=== PATIENT | female | born 1935 | race Caucasian/White ===

== ENCOUNTER 2019-01-15 07:30 | Inpatient (IN) | payer OTHER ==
[~2019-01-15] VITALS: Ht 162.6 cm; Wt 70.8 kg
[2019-01-15] MEDS ORDERED: [UNRECOGNIZED DRUG - OTHER] PO (09:57)
[2019-01-15] MEDS ORDERED: AMILODIPINE PO (09:57)
[2019-01-15] MEDS ORDERED: ATENOLO PO (09:58)
[2019-01-15] MEDS ORDERED: GABAPENTIN600 MG PO (09:58)
[2019-01-15] MEDS ORDERED: FOLGARD TABLET1 EACH PO (09:59)
[2019-01-27] MEDS ORDERED: DIOVAN160 M1 PO (15:42)
[2019-01-27] MEDS ORDERED: NORVASC5 MG PO (15:42)
[2019-01-27] MEDS ORDERED: TENORMIN25 MG PO (15:43)
[2019-01-30] MEDS ORDERED: ELIQUIS2.5 MG PO (08:16)
[2019-01-30] MEDS ORDERED: PERCOCET 5-3251 EACH PO (08:16)
[2019-01-30] MEDS ORDERED: DUI500 PO (08:16)
== END 2019-01-30 16:32 | DRG 470 ==
LOC: O/R 01-27 05:45 → SURH 01-27 05:45
PROVIDERS: ADMIT Orthopaedic Surgery
PROC: 0SRC0J9 Replacement of Right Knee Joint with Synthetic Substitute, Cemented, Open Approach (ICD-10-PCS; principal; 2019-01-28)
PROC: 0MNN0ZZ Release Right Knee Bursa and Ligament, Open Approach (ICD-10-PCS; 2019-01-28)
DX: M17.11 Unilateral primary osteoarthritis, right knee (principal); D62 Acute posthemorrhagic anemia; M81.0 Age-related osteoporosis without current pathological fracture; I10 Essential (primary) hypertension; E66.8 Other obesity; Z85.3 Personal history of malignant neoplasm of breast

== ENCOUNTER 2020-11-29 07:33 | Outpatient (CLI) | payer OTHER ==
[~2020-11-29 07:33] MED LIST: AMILODIPINE PO; ATENOLO PO; DIOVAN160 M1 PO; DUI500 PO; ELIQUIS2.5 MG PO; FOLGARD TABLET1 EACH PO; GABAPENTIN600 MG PO; NORVASC5 MG PO; PERCOCET 5-3251 EACH PO; TENORMIN25 MG PO; [UNRECOGNIZED DRUG - OTHER] PO
== END 2020-11-29 07:47 | disposition home or self-care (01) ==
LOC: NUCLEAR 07:33
PROVIDERS: ATTEND Specialist
DX: I11.9 Hypertensive heart disease without heart failure (principal); I25.9 Chronic ischemic heart disease, unspecified
CPT/HCPCS: 78452; 93017; A9500; J1250